=== PATIENT | male | born 2000 | race Caucasian/White ===

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

== ENCOUNTER 2022-02-17 00:59 | Emergency (ER) | payer OTHER, SELFPAY ==
[2022-02-17] MEDS ORDERED: NA CHLORIDE 0.9% 1,000 ML ONE ×2 (01:31→03:08)
[2022-02-17 01:35] LABS: Absolute Lymphocytes (CBC) 0.9 K/uL (0.7-4.9); Hematocrit 42.6 % (39.6-49.0); Lymphocytes % 7.5 % (15.3-44.8); RBC Red Blood Cell Count 4.94 M/uL (4.33-5.43)
[2022-02-17 01:38] LABS: Protime INR 1.3
[2022-02-17 01:53] LABS: ALT/SGPT 18 U/L (12-78); AST/SGOT 10 U/L (15-37); Albumin 4.5 g/dL (3.4-5.0); Alkaline Phosphatase 98 U/L (45-117); BUN Blood Urea Nitrogen 9 mg/dL (7-18); Bicarbonate 28 mmol/L (21-32); Bilirubin Direct 0.2 mg/dL (0-0.2); Bilirubin Total 0.7 mg/dL (0.2-1.0); Glucose Level 102 mg/dL (74-106); Potassium 3.4 mmol/L (3.5-5.1); Protein, Total 8.4 g/dL (6.4-8.2); Sodium Level 137 mmol/L (136-145)
--- NOTE | 2022-02-17 03:49 | EDPHYS ---
Physician Documentation [facility] Name: Ruy Dial II Age: 21 yrs Sex: Male : 2000 Arrival Date: 02/17/2022 Time: 01:05 Bed 3 Private MD: ED Physician John Cook HPI: 02/17 03:43 This 21 yrs old Male presents to ER via EMS with complaints of Overdose. chris 03:43 The patient presents to the emergency department after a known overdose, that was chris intentional. Context: Time: just prior to arrival. Associated signs and symptoms: Pertinent positives: ALTERED , SLOW SPEECH. Severity of symptoms: At their worst the symptoms were mild moderate in the emergency department the symptoms have improved mildly. The patient has experienced similar episodes in the past, multiple times. Historical: - Allergies: 01:08 Unable to obtain; lp1 - Home Meds: 01:08 Suboxone sublingual [Active]; lp1 - PMHx: 01:08 None; lp1 - Immunization history:: Adult Immunizations unknown. - Social history:: Smoking status: Reported history of juuling and/or vaping. Patient uses street drugs, cocaine, marijuana. - Family history:: not pertinent. ROS: 03:43 Constitutional: Negative for fever, chills, and weight loss, Eyes: Negative for injury, chris pain, redness, and discharge, ENT: Negative for injury, pain, and discharge, Neck: Negative for injury, pain, and swelling, Cardiovascular: Negative for chest pain, palpitations, and edema, Respiratory: Negative for shortness of breath, cough, wheezing, and pleuritic chest pain, Abdomen/GI: Negative for abdominal pain, nausea, vomiting, diarrhea, and constipation, Back: Negative for injury and pain, : Negative for injury, bleeding, discharge, and swelling, MS/Extremity: Negative for injury and deformity, Skin: Negative for injury, rash, and discoloration. 03:43 Neuro: Positive for altered mental status, dizziness, weakness. Exam: 03:43 Constitutional: This is a well developed, well nourished patient who is awake, alert, chris and in no acute distress. Head/Face: Normocephalic, atraumatic. Eyes: Pupils equal round and reactive to light, extra-ocular motions intact. Lids and lashes normal. Conjunctiva and sclera are non-icteric and not injected. Cornea within normal limits. Periorbital areas with no swelling, redness, or edema. ENT: Nares patent. No nasal discharge, no septal abnormalities noted. Tympanic membranes are normal and external auditory canals are clear. Oropharynx with no redness, swelling, or masses, exudates, or evidence of obstruction, uvula midline. Mucous membranes moist. Neck: Trachea midline, no thyromegaly or masses palpated, and no cervical lymphadenopathy. Supple, full range of motion without nuchal rigidity, or vertebral point tenderness. No Meningismus. Chest/axilla: Normal chest wall appearance and motion. Nontender with no deformity. No lesions are appreciated. Cardiovascular: Regular rate and rhythm with a normal S1 and S2. No gallops, murmurs, or rubs. Normal PMI, no JVD. No pulse deficits. Respiratory: Lungs have equal breath sounds bilaterally, clear to auscultation and percussion. No rales, rhonchi or wheezes noted. No increased work of breathing, no retractions or nasal flaring. Abdomen/GI: Soft, non-tender, with normal bowel sounds. No distension or tympany. No guarding or rebound. No evidence of tenderness throughout. Back: No spinal tenderness. No costovertebral tenderness. Full range of motion. Male : Normal genitalia with no discharge or lesions. Skin: Warm, dry with normal turgor. Normal color with no rashes, no lesions, and no evidence of cellulitis. MS/ Extremity: Pulses equal, no cyanosis. Neurovascular intact. Full, normal range of motion. Psych: Awake, alert, with orientation to person, place and time. Behavior, mood, and affect are within normal limits. 03:43 Neuro: Orientation: to person, place, time, situation, Mentation: slow to respond, Memory: Cranial nerves: is grossly normal based on the patient's age, no acute changes, Cerebellar function: unable to test, Motor: moves all fours, strength is 5/5 in all extremities, Sensation: appropriate no acute changes, Gait: not tested. Babinski testing is normal. 03:51 ECG was reviewed by the Attending Physician. [facility] Vital Signs: 01:05 BP 123 / 68; Pulse 61; Resp 14; Temp 98.4(O); Pulse Ox 100% on R/A; Weight 74.84 kg; lp1 Height 6 ft. 2 in. (187.96 cm); 01:52 BP 109 / 63; Pulse 54; Resp 14 S; Pulse Ox 100% on R/A; lg3 02:45 BP 140 / 69; Pulse 50; Resp 17; Pulse Ox 99% on R/A; lg3 03:00 BP 101 / 62; Pulse 68; Resp 16 S; Pulse Ox 100% on R/A; lg3 04:15 BP 126 / 71; Pulse 71; Resp 17 S; Pulse Ox 100% on R/A; lg3 01:05 Body Mass Index 21.18 (74.84 kg, 187.96 cm) lp1 MDM: 01:24 Patient medically screened. chris 03:43 Data reviewed: vital signs, nurses notes, lab test result(s), EKG, radiologic studies, chris plain films. Data interpreted: pill maker: rate is 68 beats/min, rhythm is regular, Pulse oximetry: on room air is 100 %. Test interpretation: by ED physician or midlevel provider: ECG, plain radiologic studies. Counseling: I had a detailed discussion with the patient and/or guardian regarding: the historical points, exam findings, and any diagnostic results supporting the discharge/admit diagnosis, lab results, radiology results, the need for outpatient follow up, for definitive care, a family practitioner, a psychiatrist. 02/17 01:08 Order name: Acetaminophen; Complete Time: 03:37 lp02/17 01:08 Order name: Basic Metabolic Panel; Complete Time: 03:37 lp02/17 01:08 Order name: CBC with Diff; Complete Time: 03:37 lp02/17 01:08 Order name: ETOH Level; Complete Time: 03:37 lp02/17 01:08 Order name: Hepatic Function; Complete Time: 03:37 lp02/17 01:08 Order name: PT-INR; Complete Time: 03:37 lp02/17 01:08 Order name: Ptt, Activated; Complete Time: 03:37 lp02/17 01:08 Order name: Salicylate; Complete Time: 03:37 lp1 02/17 01:08 Order name: Urine Drug Screen; Complete Time: 04:47 lp02/17 02:28 Order name: Acetaminophen: Draw at 0345 (4hr level); Complete Time: 04:47 lp1 02/17 03:58 Order name: Urine Dipstick-Ancillary; Complete Time: 04:47 EDMS 02/17 01:08 Order name: EKG; Complete Time: 01:09 lp1 02/17 01:08 Order name: EKG - Nurse/Tech; Complete Time: 01:26 lp1 02/17 01:08 Order name: IV Saline Lock; Complete Time: 01:26 lp1 02/17 01:08 Order name: Labs collected and sent; Complete Time: 01:27 lp1 02/17 01:08 Order name: Suicide Screening ([place]); Complete Time: 01:35 lp1 02/17 01:08 Order name: Urine Dipstick-Ancillary (obtain specimen); Complete Time: 03:56 lp1 02/17 01:24 Order name: Misc. Order: CALL POISON CONTROL; Complete Time: 01:38 chris 02/17 03:50 Order name: Misc. Order: DC WHEN REPEAT APAP NEG; Complete Time: 04:06 chris EC:51 Rate is 59 beats/min. Rhythm is regular. QRS [place] is Normal. [place] interval is normal. QRS chris interval is normal. QT interval is normal. No Q waves. T waves are Normal. No ST changes noted. Clinical impression: Sinus bradycardia and No evidence of ischemia. Interpreted by me. Reviewed by me. Administered Medications: 01:30 Drug: NS 0.9% 1000 ml Route: IV; Rate: 1000 ml; Site: left forearm; lg3 02:31 Follow up: Response: No adverse reaction; IV Status: Completed infusion; IV Intake: lg3 1000ml 03:08 Drug: NS 0.9% 1000 ml Route: IV; Rate: 1 bolus; Site: left forearm; lg3 04:31 Follow up: Response: No adverse reaction; IV Status: Completed infusion; IV Intake: lg3 1000ml 03:48 Drug: Potassium Effervescent Tablet 25 mEq Route: PO; kd3 03:56 Follow up: Response: No adverse reaction lg3 Disposition Summary: 02/17/22 03:48 Discharge Ordered Location: Home chris Problem: new chris Symptoms: have improved chris Condition: Stable chris Diagnosis - Altered mental status, unspecified chris - Abuse of other non-psychoactive substances chris - Hypokalemia chris - Cocaine abuse chris - Adverse effect of benzodiazepines chris Followup: chris - With: Private Physician - When: 2 - 3 days - Reason: Recheck today's complaints, Continuance of care, Re-evaluation by your physician Followup: chris - With: Tonny Jaimes MD - When: 1 - 2 days - Reason: Recheck today's complaints, Continuance of care, Re-evaluation by your physician Discharge Instructions: - Discharge Summary Sheet chris - Finding Treatment for Addiction chris - Confusion chris - Potassium Content of Foods chris - Substance Use Disorder chris - Cocaine Use Disorder chris - Supporting Someone With an Addiction chris - Hypokalemia chris - Illegal Drug Use Information, Teen chris - Substance Use Disorder and Mental Illness chris - Benzodiazepine Overdose chris Forms: - Medication Reconciliation Form chris - Thank You Letter chris - Antibiotic Education chris - Prescription Opioid Use chris Signatures: Dispatcher [employer] John Hernandes MD MD cha Pena, Laura, RN RN lp1 Margot Yu RN RN lg3 Brandi Moralez RN RN kd3
--- NOTE | 2022-02-17 03:49 | ER ---
Nurse's Notes [facility] Name: Ruy Dial II Age: 21 yrs Sex: Male : 2000 Arrival Date: 02/17/2022 Time: 01:05 Bed 3 Private MD: Diagnosis: Altered mental status, unspecified;Abuse of other non-psychoactive substances;Hypokalemia;Cocaine abuse;Adverse effect of benzodiazepines Presentation: 02/17 01:05 Chief complaint: EMS states: Called for patient in custody of [facility], after being lp1 pulled over, reported ingesting Percocet mg tablets x20 and Xanax 2mg x3-4 at about 2345. Coronavirus screen: At this time, the client does not indicate any symptoms associated with coronavirus-19. Ebola Screen: No symptoms or risks identified at this time. Initial Sepsis Screen: Does the patient meet any 2 criteria? No. Patient's initial sepsis screen is negative. Does the patient have a suspected source of infection? No. Patient's initial sepsis screen is negative. Risk Assessment: Do you want to hurt yourself or someone else? Patient reports no desire to harm self or others. Onset of symptoms was February 17, 2022. 01:05 Method Of Arrival: EMS: [facility] lp1 01:05 Acuity: ABELARDO 2 lp1 Historical: - Allergies: 01:08 Unable to obtain; lp1 - Home Meds: 01:08 Suboxone sublingual [Active]; lp1 - PMHx: 01:08 None; lp1 - Immunization history:: Adult Immunizations unknown. - Social history:: Smoking status: Reported history of juuling and/or vaping. Patient uses street drugs, cocaine, marijuana. - Family history:: not pertinent. Screenin:31 Abuse screen: Denies threats or abuse. Denies injuries from another. Nutritional lg3 screening: No deficits noted. Tuberculosis screening: No symptoms or risk factors identified. Fall Risk None identified. Assessment: :31 General: Appears in no apparent distress. comfortable, Behavior is calm, cooperative, lg3 flat. Pain: Denies pain. Neuro: Level of Consciousness is awake, obeys commands, lethargic, Oriented to person, place, time, situation, Speech is normal. Cardiovascular: No deficits noted. Denies chest pain, shortness of breath. Respiratory: No deficits noted. Airway is patent Trachea midline Respiratory effort is even, unlabored, Respiratory pattern is regular, symmetrical. GI: No deficits noted. No signs and/or symptoms were reported involving the gastrointestinal system. Abdomen is flat, non-distended. : No deficits noted. No signs and/or symptoms were reported regarding the genitourinary system. EENT: No deficits noted. No signs and/or symptoms were reported regarding the EENT system. Derm: No deficits noted. No signs and/or symptoms reported regarding the dermatologic system. Skin is intact, is healthy with good turgor, Skin is dry. Musculoskeletal: No deficits noted. No signs and/or symptoms reported regarding the musculoskeletal system. Circulation, motion, and sensation intact. Capillary refill < 3 seconds, Range of motion: intact in all extremities. 01:41 Reassessment: Poison Control contacted, spoke with Britany: Reports to monitor for lp1 Respiratory Depression, obtain 4hr Tylenol level, recommended observation for 6 hours, 12 hours if Percocet is extended release tablets; Case #:[id number]. 01:53 Reassessment: Patient appears in no apparent distress at this time. No changes from lg3 previously documented assessment. Patient and/or family updated on plan of care and expected duration. Pain level reassessed. Patient is alert, oriented x 3, equal unlabored respirations, skin warm/dry/pink. 02:29 Reassessment: Verbal order by Dr. Cook for Acetaminophen level to be drawn 4 hours lp1 after ingestion. 03:59 Reassessment:. General: Appears in no apparent distress. comfortable, Behavior is calm, lg3 cooperative. Neuro: Level of Consciousness is awake, alert, obeys commands, Oriented to person, place, time, situation, Speech is normal. Cardiovascular: No deficits noted. Respiratory: No deficits noted. Airway is patent Trachea midline Respiratory effort is even, unlabored, Respiratory pattern is regular, symmetrical. 04:30 Reassessment: Patient appears in no apparent distress at this time. No changes from lg3 previously documented assessment. Patient and/or family updated on plan of care and expected duration. Pain level reassessed. Patient is alert, oriented x 3, equal unlabored respirations, skin warm/dry/pink. Overdose: 01:33 [place] Suicide Severity Screening: "In the past month, have you wished you were lg3 or wished you could go to sleep and not wake up?" Patient responds "no." "In the past month, have you actually had any thoughts of killing yourself?" Patient responds "no." "In your lifetime, have you ever done anything, started to do anything, or prepared to do anything to end your life?" Patient responds "no.". Vital Signs: 01:05 BP 123 / 68; Pulse 61; Resp 14; Temp 98.4(O); Pulse Ox 100% on R/A; Weight 74.84 kg; lp1 Height 6 ft. 2 in. (187.96 cm); 01:52 BP 109 / 63; Pulse 54; Resp 14 S; Pulse Ox 100% on R/A; lg3 02:45 BP 140 / 69; Pulse 50; Resp 17; Pulse Ox 99% on R/A; lg3 03:00 BP 101 / 62; Pulse 68; Resp 16 S; Pulse Ox 100% on R/A; lg3 04:15 BP 126 / 71; Pulse 71; Resp 17 S; Pulse Ox 100% on R/A; lg3 01:05 Body Mass Index 21.18 (74.84 kg, 187.96 cm) lp1 ED Course: 01:05 Patient arrived in ED. lp1 01:07 Triage completed. lp1 01:09 Patient has correct armband on for positive identification. Bed in low position. lp1 campus monitor on. Pulse ox on. NIBP on. 01:10 Margot Yu RN is Primary Nurse. lg3 01:24 John Cook MD is Attending Physician. chris 01:27 Acetaminophen Sent. lg3 01:27 Basic Metabolic Panel Sent. lg3 01:27 CBC with Diff Sent. lg3 01:27 ETOH Level Sent. lg3 01:27 Hepatic Function Sent. lg3 01:27 PT-INR Sent. lg3 01:27 Ptt, Activated Sent. lg3 01:27 Salicylate Sent. lg3 01:31 Inserted saline lock: 20 gauge in left forearm, using aseptic technique. Blood lg3 collected. 01:34 Arm band placed on left wrist. lg3 03:47 Tonny Jaimes MD is Referral Physician. chris 03:56 Acetaminophen: Draw at 0345 (4hr level) Sent. lg3 03:56 Urine Drug Screen Sent. lg3 05:00 No provider procedures requiring assistance completed. IV discontinued, intact, lg3 bleeding controlled, No redness/swelling at site. Pressure dressing applied. Administered Medications: 01:30 Drug: NS 0.9% 1000 ml Route: IV; Rate: 1000 ml; Site: left forearm; lg3 02:31 Follow up: Response: No adverse reaction; IV Status: Completed infusion; IV Intake: lg3 1000ml 03:08 Drug: NS 0.9% 1000 ml Route: IV; Rate: 1 bolus; Site: left forearm; lg3 04:31 Follow up: Response: No adverse reaction; IV Status: Completed infusion; IV Intake: lg3 1000ml 03:48 Drug: Potassium Effervescent Tablet 25 mEq Route: PO; kd3 03:56 Follow up: Response: No adverse reaction lg3 Intake: 02:31 IV: 1000ml; Total: 1000ml. lg3 04:31 IV: 1000ml; Total: 2000ml. lg3 Outcome: 03:48 Discharge ordered by . chris 05:00 Discharged to Law Enforcement lg3 05:00 Condition: stable 05:00 Discharge instructions given to patient, police, Instructed on discharge instructions, Demonstrated understanding of instructions. 05:01 Patient left the ED. lg3 Signatures: John Cook MD MD cha Pena, Laura, RN RN lp1 Margot Yu RN RN lg3 Brandi Moralez RN RN kd3 Corrections: (The following items were deleted from the chart) 01:34 01:33 [place] Suicide Severity Screening: "In the past month, have you wished you were lg3 or wished you could go to sleep and not wake up?" Patient responds "no." lg3 01:34 01:33 [place] Suicide Severity Screening: "In the past month, have you wished you were lg3 or wished you could go to sleep and not wake up?" Patient responds "no." lg3
[2022-02-17] MEDS ORDERED: POTASSIUM 25 MEQ EFFERV TAB ONE (03:50)
[2022-02-17 03:57] LABS: Urine Blood Negative (Negative); Urine Glucose Negative (Negative); Urine Protein Negative (Negative)
[2022-02-17 04:16] LABS: Barbiturates NEGATIVE (NEGATIVE); Benzodiazepines POSITIVE (NEGATIVE); Cocaine POSITIVE (NEGATIVE); METHAMPHETAM NEGATIVE (NEGATIVE); Methadone NEGATIVE (NEGATIVE); Opiates NEGATIVE (NEGATIVE); Phencyclidine NEGATIVE (NEGATIVE); THC Cannibis POSITIVE (NEGATIVE)
[2022-02-17 05:07] VITALS: TEMP 98.4
[2022-02-17 05:11] VITALS: O2SAT 100
[2022-02-17 05:12] VITALS: BP 126/71
--- NOTE | 2022-02-17 07:42 | EKG ---
Test Date: 2022-02-17 Test Time: 01:28:42 Open Claims Representative: NIYA MEASUREMENT RESULTS: Intervals: Rate: 59 SC: 128 QRSD: 96 QT: 412 QTc: 407 [place]: P: 36 SC: 128 QRS: 76 T: 48 INTERPRETIVE STATEMENTS: Sinus bradycardia Otherwise normal ECG No previous ECG available for comparison Electronically Signed On 02-17-22 07:41:15 CDT by Emigdio Watts
== END 2022-02-17 05:01 | disposition home or self-care (01) ==
LOC: ER 00:59
DX: F14.10 Cocaine abuse, uncomplicated (principal); F55.8 Abuse of other non-psychoactive substances; E87.6 Hypokalemia; T42.4X5A Adverse effect of benzodiazepines, initial encounter
CPT/HCPCS: 36415; 80048; 80076; 80307; 80320; 80329; 81003; 85025; 85610; 85730; 93005; 96360; 96361; 99284; J7030